=== PATIENT | female | born 1980 | race Caucasian/White ===

== ENCOUNTER 2018-02-11 08:56 | Emergency (ER) | payer BC ==
[~2018-02-11] VITALS: Ht 165.1 cm; Wt 72.6 kg
[2018-02-11] MEDS ORDERED: fentaNYL PF VIAL 100 MCG/2 ML VIAL IV ONE (09:15)
--- NOTE | 2018-02-11 09:22 | PHYS DOC ---
Adult General Chief Complaint Chief Complaint: PELVIC PAIN HPI HPI Patient is a 37 year old female who presents with burning with urination, frequency, and low abdominal pain that wraps around to her right flank. Nausea. She states she taking Azo today. No known drug allergies. States over symptoms started at 0500 this morning. 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 Review of Systems Review of Systems Constitutional: Denies fever or chills [] Eyes: Denies change in visual acuity, redness, or eye pain [] HENT: Denies nasal congestion or sore throat [] Respiratory: Denies cough or shortness of breath [] Cardiovascular: No additional information not addressed in HPI [] GI: generalized abdominal pain, nausea. Denies vomiting, bloody stools or diarrhea [] : dysuria or hematuria [] Musculoskeletal: Denies back pain or joint pain [] Integument: Denies rash or skin lesions [] Neurologic: Denies headache, focal weakness or sensory changes [] All other systems were reviewed and found to be within normal limits, except as documented in this note. Current Medications Current Medications Current Medications Medications (Trade) Dose Ordered Sig/[facility] Start Time Stop Time Status Last Admin Dose Admin Fentanyl Citrate (Fentanyl 2ml Vial) 50 mcg 1X ONCE 02/11/18 09:15 02/11/18 09:24 DC 02/11/18 09:50 50 MCG Ketorolac Tromethamine (Toradol 30mg Vial) 30 mg 1X ONCE 02/11/18 09:30 02/11/18 09:31 DC 02/11/18 09:47 30 MG Ondansetron HCl (Zofran) 4 mg 1X ONCE 02/11/18 09:30 02/11/18 09:31 DC 02/11/18 09:46 4 MG Sodium Chloride 1,000 ml @ 1,000 mls/hr 1X ONCE 02/11/18 09:30 02/11/18 10:29 DC 02/11/18 09:45 1,000 MLS/HR Allergies Allergies Allergies Coded Allergies Type Severity Reaction Last Updated Verified No Known Drug Allergies 02/11/18 No Physical Exam Physical Exam Constitutional: Well developed, well nourished, no acute distress, non-toxic appearance. [] HENT: Normocephalic, atraumatic, bilateral external ears normal, oropharynx moist, no oral exudates, nose normal. [] Eyes: PERRLA, EOMI, conjunctiva normal, no discharge. [] Neck: Normal range of motion, no tenderness, supple, no stridor. [] Cardiovascular:Heart rate regular rhythm, no murmur [] Lungs & Thorax: Bilateral breath sounds clear to auscultation [] Abdomen: Bowel sounds normal, soft, Generalized tenderness, no masses, no pulsatile masses. [] Skin: Warm, dry, no erythema, no rash. [] Back: No tenderness, no CVA tenderness. [] Extremities: No tenderness, no cyanosis, no clubbing, ROM intact, no edema. [] Neurologic: Alert and oriented X 3, normal motor function, normal sensory function, no focal deficits noted. [] Psychologic: Affect normal, judgement normal, mood normal. [] Current Patient Data Vital Signs Vital Signs Date Time Temp Pulse Resp B/P (MAP) Pulse Ox O2 Delivery O2 Flow Rate FiO2 02/11/18 10:48 82 109/66 (80) 98 Room Air 02/11/18 09:50 18 02/11/18 09:00 98.2 98.2 Lab Values Laboratory Tests Test 02/11/18 09:08 02/11/18 09:10 02/11/18 09:50 POC Urine HCG, Qualitative Hcg negative (Negative) Urine Color [place] Urine Clarity Clear Urine pH 7.0 Urine Specific [facility] <=1.005 Urine Protein Negative mg/dL (NEG-TRACE) Urine Glucose (UA) Negative mg/dL (NEG) Urine Ketones (Stick) Negative mg/dL (NEG) Urine Blood Large (NEG) Urine Nitrite Positive (NEG) Urine Bilirubin Negative (NEG) Urine Urobilinogen Dipstick 1.0 mg/dL (0.2 mg/dL) Urine Leukocyte Esterase Large (NEG) Urine RBC 20-40 /HPF (0-2) Urine WBC Tntc /HPF (0-4) Urine Bacteria Many /HPF (0-FEW) White Blood Count 14.8 x10^3/uL (4.0-11.0) H Red Blood Count 4.79 x10^6/uL (3.50-5.40) Hemoglobin 15.5 g/dL (12.0-15.5) Hematocrit 44.6 % (36.0-47.0) Mean Corpuscular Volume 93 fL (79-100) Mean Corpuscular Hemoglobin 32 pg (25-35) Mean Corpuscular Hemoglobin Concent 35 g/dL (31-37) Red Cell Distribution Width 12.8 % (11.5-14.5) Platelet Count 414 x10^3/uL (140-400) H Neutrophils (%) (Auto) 80 % (31-73) H Lymphocytes (%) (Auto) 14 % (24-48) L Monocytes (%) (Auto) 6 % (0-9) Eosinophils (%) (Auto) 1 % (0-3) Basophils (%) (Auto) 0 % (0-3) Neutrophils # (Auto) 11.8 x10^3uL (1.8-7.7) H Lymphocytes # (Auto) 2.0 x10^3/uL (1.0-4.8) Monocytes # (Auto) 0.8 x10^3/uL (0.0-1.1) Eosinophils # (Auto) 0.1 x10^3/uL (0.0-0.7) Basophils # (Auto) 0.0 x10^3/uL (0.0-0.2) Sodium Level 142 mmol/L (136-145) Potassium Level 4.0 mmol/L (3.5-5.1) Chloride Level 105 mmol/L (98-107) Carbon Dioxide Level 27 mmol/L (21-32) Anion Gap 10 (6-14) Blood Urea Nitrogen 10 mg/dL (7-20) Creatinine 0.9 mg/dL (0.6-1.0) Estimated GFR (Cockcroft-Gault) 70.5 BUN/Creatinine Ratio 11 (6-20) Glucose Level 94 mg/dL (70-99) Calcium Level 9.7 mg/dL (8.5-10.1) Total Bilirubin 0.3 mg/dL (0.2-1.0) Aspartate Amino Transferase (AST) 21 U/L (15-37) Alanine Aminotransferase (ALT) 39 U/L (14-59) Alkaline Phosphatase 54 U/L (46-116) Total Protein 8.5 g/dL (6.4-8.2) H Albumin 4.1 g/dL (3.4-5.0) Albumin/Globulin Ratio 0.9 (1.0-1.7) L Lipase 101 U/L (73-393) Laboratory Tests 02/11/18 09:50 Laboratory Tests 02/11/18 09:50 EKG EKG [] Radiology/Procedures Radiology/Procedures CT ABD PELV Impressions: [facility] [address] [place] [address] IMAGING REPORT Signed PATIENT: RUBENS VILCHIS ACCOUNT: [id number] : 1980 LOCATION: ER AGE: 37 SEX: F EXAM STATUS: REG ER ORD. PHYSICIAN: STEF DE OLIVEIRA PLASTIC TOOL MAKER REASON: flank pain, abdominal pain PROCEDURE: CT ABDOMEN PELVIS WO CONTRAST Examination: CT ABDOMEN PELVIS WO CONTRAST History: RIGHT SIDE FLANK PAIN, HX OF KIDNEY INFECTIONS AND UTI
NO PRIORS Comparison/Correlation: None Findings: Axial images of the abdomen and pelvis were obtained without contrast. Sagittal and coronal reformatted images were provided. Visualized lung bases are clear. Unenhanced liver, spleen, pancreas, and adrenal glands are normal. Gallbladder fossa is unremarkable. There are no radiopaque right collecting system calculi. Extrarenal bifid pelvis is present. Left renal superficial 0.2 cm diameter calyceal calculus is present. Punctate calculus is also present at the left renal superficial. No left collecting system obstruction. The appendix is normal. Moderate quantity of stool in the colon is present. High density within the distal hemicolon which may represent retained contrast or other ingested substances is identified. No bowel obstruction or extraluminal gas. Left renal cyst is suggested and physiologic in appearance. No ascites or pelvic free fluid. Urinary bladder is unremarkable. Bony structures are unremarkable. Impression: Nonobstructive left renal calculi. No collecting system obstruction. Appendix is normal. No inflammatory changes identified to involve the abdomen or pelvis. Electronically signed by: Christiano Wilkins MD (02/11/2018 9:55 AM) [id number] DICTATED and SIGNED BY: KELLY GRAHAM MD DATE: 02/11/18 0945 Course & Med Decision Making Course & Med Decision Making Patient is a 37 year old female who presents with burning with urination, frequency, and low abdominal pain that wraps around to her right flank. Nausea. She states she taking Azo today. No known drug allergies. States over symptoms started at 0500 this morning. 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 Alert and oriented. Skin pink warm and dry. Mucous membranes are moist. She rates her pain at this time noticed 6 out of 10. Abdomen is soft but has generalized tenderness with palpation. Afebrile. Patient has right-sided CVA tenderness. Patietn has no extremity swelling, soa, chest pain, fever. Urine is infected showing nitrites. CT abdomen pelvis shows Nonobstructive left renal calculi. No collecting system obstruction. Appendix is normal. No inflammatory changes identified to involve the abdomen or pelvis. Patient be placed on antibiotics and drink plenty of fluids and needs to follow-up with urology. Dragon Disclaimer Dragon Disclaimer This electronic medical record was generated, in whole or in part, using a voice recognition dictation system. Departure Departure Impression: Primary Impression: UTI (urinary tract infection) Additional Impression: Kidney stone Disposition: HOME, SELF-CARE Condition: STABLE Referrals: SUZANNA JOSEPH MD Patient Instructions: Kidney Stones, Urinary Tract Infection Additional Instructions: CALL UROLOGY FOR FOLLOW UP. TAKE MEDICATIONS PRESCRIBED. Scripts Ibuprofen (IBUPROFEN) 600 Mg Tablet 600 MG PO PRN Q6HRS PRN for INFLAMMATION, #20 TAB Prov: STEF DE OLIVEIRA APRN 02/11/18 Hydrocodone/Apap 5-325 (NORCO 5-325 TABLET) 1 Each Tablet 1 TAB PO PRN Q6HRS PRN for PAIN, #20 TAB 0 Refills Prov: STEF DE OLIVEIRA APRN 02/11/18 Tamsulosin Hcl (FLOMAX) 0.4 Mg Cap.er.24h 0.4 MG PO DAILY, #20 TAB Prov: STEF DE OLIVEIRA PLASTIC TOOL MAKER 02/11/18 Sulfamethoxazole/Trimethoprim (BACTRIM DS TABLET) 1 Each Tablet 1 TAB PO BID, #14 TAB Prov: STEF DE OLIVEIRA APRN 02/11/18 Problem Qualifiers Primary Impression: UTI (urinary tract infection) Urinary tract infection type: site unspecified Hematuria presence: with hematuria Qualified Codes: N39.0 - Urinary tract infection, site not specified ; R31.9 - Hematuria, unspecified STEF DE OLIVEIRA APRN Feb 11, 2018 09:22
[2018-02-11 09:23] LABS: BILIRUBIN,URINE NEGATIVE (NEG); CLARITY,URINE CLEAR; COLOR,URINE ORANGE; NITRITE,URINE POSITIVE (NEG); PROTEIN,URINE NEGATIVE (NEG-TRACE)
[2018-02-11] MEDS ORDERED: ONDANSETRON PF 4 MG/2 ML VIAL. IV ONE (09:30)
[2018-02-11] MEDS ORDERED: KETOROLAC 30 MG/ML VIAL. IV ONE (09:30)
[2018-02-11] MEDS ORDERED: IV NORMAL SALINE 1000ML BAG 1,000 ML IV ONE (09:30)
[2018-02-11 09:36] LABS: BACTERIA,URINE MANY /HPF (0-FEW); RBC,URINE 20-40 /HPF (0-2); WBC,URINE TNTC /HPF (0-4)
--- NOTE | 2018-02-11 09:59 | RAD ---
Examination: CT ABDOMEN PELVIS WO CONTRAST History: RIGHT SIDE FLANK PAIN, HX OF KIDNEY INFECTIONS AND UTI
NO PRIORS Comparison/Correlation: None Findings: Axial images of the abdomen and pelvis were obtained without contrast. Sagittal and coronal reformatted images were provided. Visualized lung bases are clear. Unenhanced liver, spleen, pancreas, and adrenal glands are normal. Gallbladder fossa is unremarkable. There are no radiopaque right collecting system calculi. Extrarenal bifid pelvis is present. Left renal superficial 0.2 cm diameter calyceal calculus is present. Punctate calculus is also present at the left renal superficial. No left collecting system obstruction. The appendix is normal. Moderate quantity of stool in the colon is present. High density within the distal hemicolon which may represent retained contrast or other ingested substances is identified. No bowel obstruction or extraluminal gas. Left renal cyst is suggested and physiologic in appearance. No ascites or pelvic free fluid. Urinary bladder is unremarkable. Bony structures are unremarkable. Impression: Nonobstructive left renal calculi. No collecting system obstruction. Appendix is normal. No inflammatory changes identified to involve the abdomen or pelvis. Electronically signed by: Christiano Wilkins MD (02/11/2018 9:55 AM) [id number]
[2018-02-11 10:05] LABS: BASO % 0 % (0-3); EOS # 0.1 x10^3/uL (0.0-0.7); EOS % 1 % (0-3); HEMATOCRIT 44.6 % (36.0-47.0); HEMOGLOBIN 15.5 g/dL (12.0-15.5); LYMPH % 14 % (24-48); MEAN CORPUSCULAR HEMOGLOBIN 32 pg (25-35); MEAN CORPUSCULAR HGB CONC 35 g/dL (31-37); MEAN CORPUSCULAR VOLUME 93 fL (79-100); MONO # 0.8 x10^3/uL (0.0-1.1); MONO % 6 % (0-9); NEUT # 11.8 x10^3uL (1.8-7.7); NEUT % 80 % (31-73); PLATELET COUNT 414 x10^3/uL (140-400); RED BLOOD COUNT 4.79 x10^6/uL (3.50-5.40); RED CELL DISTRIBUTION WIDTH 12.8 % (11.5-14.5); WHITE BLOOD COUNT 14.8 x10^3/uL (4.0-11.0)
[2018-02-11 10:14] LABS: CALCIUM 9.7 mg/dL (8.5-10.1); CREATININE 0.9 mg/dL (0.6-1.0); GFR 70.5
[2018-02-11 10:19] LABS: ALBUMIN 4.1 g/dL (3.4-5.0); ALBUMIN/GLOBULIN RATIO 0.9 (1.0-1.7); TOTAL BILIRUBIN 0.3 mg/dL (0.2-1.0); TOTAL PROTEIN 8.5 g/dL (6.4-8.2)
[2018-02-11] MEDS ORDERED: HYDR-3164 PO (10:47)
[2018-02-11] MEDS ORDERED: TAMS0.4C97 PO (10:47)
[2018-02-11] MEDS ORDERED: IBUP-1007 PO (10:47)
[2018-02-11] MEDS ORDERED: SULF1TAB24 PO (10:47)
[2018-02-11 10:48] VITALS: BP 109/66
== END 2018-02-11 09:30 | disposition home or self-care (01) ==
LOC: ER 08:56
DX: N39.0 Urinary tract infection, site not specified (principal); R31.9 Hematuria, unspecified; N20.0 Calculus of kidney
CPT/HCPCS: 36415; 74176; 80053; 81001; 81025; 83690; 85025; 87086; 96374; 96375; 99284; J1885; J2405; J3010; J7030

== ENCOUNTER 2019-03-01 11:54 | Emergency (ER) | payer BC ==
[~2019-03-01 11:54] MED LIST: HYDR-3164 PO; IBUP-1007 PO; SULF1TAB24 PO; TAMS0.4C97 PO
--- NOTE | 2019-03-01 13:19 | PHYS DOC ---
Past Medical History Past Medical History: Other Additional Past Medical Histor: H-PYLORIC BACTERIA Past Surgical History: Other Additional Past Surgical Histo: WISDOM TEETH Alcohol Use: Occasionally Drug Use: None Adult General Chief Complaint Chief Complaint: ANXIETY/PANIC ATTACK HPI HPI Patient is a 38 year old female who presents with multiple complaints. The patient states over the last 2 days she just fell off. The patient states she's been having sore throat, sneezing, has felt sluggish, and states she's also been having a little bit of chest pain and dizziness. States that he left neck hurts. She denies cough, denies fever. Complete ROS were reviewed and found to be within normal limits, except as documented in the HPI Current Medications Current Medications Current Medications Medications (Trade) Dose Ordered Sig/[facility] Start Time Stop Time Status Last Admin Dose Admin Multi-Ingredient Mouthwash/Gargle (Gi Cocktail) 20 ml 1X ONCE 03/01/19 13:30 03/01/19 13:31 DC 03/01/19 13:26 20 ML Allergies Allergies Allergies Coded Allergies Type Severity Reaction Last Updated Verified No Known Drug Allergies 02/11/18 No Physical Exam Physical Exam Constitutional: Well developed, well nourished, no acute distress, non-toxic appearance. [] HENT: Normocephalic, atraumatic, bilateral external ears normal, oropharynx moist, tonsils are 2+/4 with no oral exudates, nose normal. [] Eyes: PERRLA, EOMI, conjunctiva normal, no discharge. [] Neck: Normal range of motion, L neck tenderness, lymphadopathy, supple, no stridor. [] Cardiovascular:Heart rate regular rhythm, no murmur [] Lungs & Thorax: Bilateral breath sounds clear to auscultation [] Skin: Warm, dry, no erythema, no rash. [] Neurologic: Alert and oriented X 3, normal motor function, normal sensory function, no focal deficits noted. [] Psychologic: Affect normal, judgement normal, mood normal. [] Current Patient Data Vital Signs Vital Signs Date Time Temp Pulse Resp B/P (MAP) Pulse Ox O2 Delivery O2 Flow Rate FiO2 03/01/19 12:44 98.0 87 16 139/88 (105) 99 Room Air 98.0 Lab Values Laboratory Tests Test 03/01/19 13:00 Group A Streptococcus Rapid Negative (NEGATIVE) EKG EKG EKG interpreted by Dr. Winston Sinus rate of 93. No STEMI[] Radiology/Procedures Radiology/Procedures [] Course & Med Decision Making Course & Med Decision Making Pertinent Labs and Imaging studies reviewed. (See chart for details) Will get Strep test and give GI cocktail. EKG performed that is unremarkable. Strep is negative and pain was relieved by GI cocktail. Discussed dietary changes with patient. Patient is already on Omeprazole. Dragon Disclaimer Dragon Disclaimer This electronic medical record was generated, in whole or in part, using a voice recognition dictation system. Departure Departure Impression: Primary Impression: Upper respiratory infection, viral Additional Impression: GERD (gastroesophageal reflux disease) Disposition: HOME, SELF-CARE Condition: STABLE Referrals: NO PCP (PCP) Patient Instructions: Diet for Gastroesophageal Reflux Disease, Adult Additional Instructions: Thank you for visiting [facility]. We appreciate you trusting us with your care. If any additional problems come up don't hesitate to return to visit us. Please follow up with your primary care provider so they can plan additional care if needed and know about the problem that you had. If symptoms worsen come back to the Emergency Department. Any concerning symptoms that start such as chest pain, shortness of air, weakness or numbness on one side of the body, running high fevers or any other concerning symptoms return to the ER. Problem Qualifiers Additional Impression: GERD (gastroesophageal reflux disease) Esophagitis presence: esophagitis presence not specified Qualified Codes: K21.9 - Gastro-esophageal reflux disease without esophagitis OLGA AVALOS APRN Mar 01, 2019 13:19
[2019-03-01] MEDS ORDERED: LIDO:MAALOX 1:1 20 ML SINGLE DOSE. SWSW ONE (13:30)
--- NOTE | 2019-03-01 13:44 | EKG ---
[facility] [address] [place] [address] Test Date: 2019-03-01 Test Time: 12:03:27 Pat Name: RUBENS VILCHIS Department: Room: Gender: F Top Waddy: : 1980 Requested By: URIEL JORDAN Order Number: [id number] Reading MD: Measurements Intervals [place] Rate: 93 P: 64 CA: 150 QRS: 35 QRSD: 78 T: 27 QT: 356 QTc: 445 Interpretive Statements SINUS RHYTHM NO SPECIFIC ECG ABNORMALITIES RI6.01 No previous ECG available for comparison
[2019-03-01 14:00] VITALS: BP 148/87
== END 2019-03-01 14:20 | disposition home or self-care (01) ==
LOC: ER 11:54
DX: J06.9 Acute upper respiratory infection, unspecified (principal); K21.9 Gastro-esophageal reflux disease without esophagitis; R07.89 Other chest pain; R42 Dizziness and giddiness; Z98.890 Other specified postprocedural states
CPT/HCPCS: 87070; 87880; 93005; 99285

== ENCOUNTER → 2020-10-16 | Outpatient (CLI) | payer BC ==
--- NOTE | 2020-10-16 09:19 | KCIC ---
EXAM: Lumbar spine, 3 views. HISTORY: Pain. COMPARISON: None. FINDINGS: 3 views of the lumbar spine are obtained. There is mild lumbar levoscoliosis centered at L2 . There is no significant listhesis. The vertebral bodies are normal in height and the disc spaces ar e preserved. IMPRESSION: No acute osseous finding. Mild lumbar scoliosis. Electronically signed by: Екатерина Cleveland MD (10/16/2020 9:17 AM) [id number]
== END ==
LOC: KCIC 08:12
PROVIDERS: ATTEND Family Medicine
DX: M41.86 Other forms of scoliosis, lumbar region (principal); M54.41 Lumbago with sciatica, right side
CPT/HCPCS: 72100